=== PATIENT | female | born 1965 | race Hispanic/Latino ===

== ENCOUNTER 2017-03-18 08:33 | Day surgery (SDC) | payer MEDICAID, MEDICARE ==
[~2017-03-18] VITALS: Ht 154.9 cm; Wt 72.0 kg
[~2017-03-18 08:33] MED LIST: 0.9% Sodium Chloride 1,000 ML IV SCH; CITA20TA11 PO; CYCL10TA9 PO; NAPR500T PO; OMEP20TA86 PO; Sodium Chloride LOK Flush 10 mL Syringe IV PRN; fentaNYL-PF 50 mCg/mL 2 mL Inj IVPUSH PRN
[2017-03-18] MEDS ORDERED: fentaNYL-PF 50 mCg/mL 2 mL Inj IVPUSH ONE (08:34)
[2017-03-18 08:50] VITALS: BP 126/83; PULSE 74; RESP 15; O2SAT 97
[2017-03-18 09:52] VITALS: BP 124/72; PULSE 80; RESP 16; O2SAT 95
[2017-03-18 10:02] VITALS: BP 122/76; PULSE 74; RESP 16; O2SAT 97
[2017-03-18 10:12] VITALS: BP 128/78; PULSE 74; RESP 16; O2SAT 98
--- NOTE | 2017-03-18 10:44 | ENDO ---
[address] [address] ENDOSCOPY PROCEDURE PATIENT: HENRIETTA WEIR : 1965 MR#: [id number] ADMIT: 03/18/2017 JOB ID: [id number] DATE: 03/18/2017 PROCEDURE: Colonoscopy. INDICATIONS: Screening. The patient's ASA classification is 1. Mallampati score is 2. MEDICATIONS: Please see nurse's notes for details regarding sedation. INSTRUMENT USED: PCF INCOMPLETE DICTATION: "Dictation ends here."
--- NOTE | 2017-03-18 10:46 | ENDO ---
[address] [address] ENDOSCOPY PROCEDURE PATIENT: HENRIETTA WEIR : 1965 MR#: [id number] ADMIT: 03/18/2017 JOB ID: [id number] DATE: 03/18/2017 PROCEDURE: Colonoscopy. INDICATION: Screening. The patient's ASA classification is 2. Mallampati score is 2. MEDICATIONS: Please see nurse's notes for details regarding sedation. INSTRUMENT USED: PCF H 180 AL. PREPARATION QUALITY: Was good. PROCEDURE DETAILS: After informed consent was obtained, the patient was brought into the GI suite, where she was placed on oxygen via nasal cannula and monitored with continuous pulse oximeter, telemetry, and blood pressure monitoring. A time-out was performed. Then, he was placed in a left lateral decubitus position and medications were administered for sedation. Digital rectal examination was performed, which was unremarkable. The colonoscope was then inserted into the rectum and advanced under direct visualization to the cecum, which identified by the presence of the ileocecal valve and appendiceal orifice. Once the cecum was reached, the colonoscope was withdrawn back into the rectum. Mucosa and lumen were examined. In the rectum, retroflexion was performed. Following retroflexion, remaining air in the rectum was suctioned, and procedure was completed. FINDINGS: Normal examination from rectum to cecum. IMPRESSION: Normal colonoscopy. RECOMMENDATIONS: Repeat colonoscopy in 10 years, sooner if symptoms should dictate. COMPLICATIONS: None. ESTIMATED BLOOD LOSS: 0.
== END 2017-03-18 23:59 | disposition home or self-care (01) ==
LOC: END 08:33
PROVIDERS: ATTEND Internal Medicine Gastroenterology
DX: Z12.11 Encounter for screening for malignant neoplasm of colon (principal); M54.9 Dorsalgia, unspecified; F32.9 Major depressive disorder, single episode, unspecified; F41.9 Anxiety disorder, unspecified; Z87.442 Personal history of urinary calculi
CPT/HCPCS: G0121; G0500; J2250; J3010; J7030